=== PATIENT | female | born 1960 | race Caucasian/White ===

== ENCOUNTER 2019-10-28 07:02 | Emergency (ER) | payer BC ==
--- NOTE | 2019-10-28 07:12 | UC ---
Respiratory Complaint HPI - HPI Summary HPI Summary: CHIEF COMPLAINT: COUGH HPI: This is a 59 Y/O with a cough for 2 weeks. "Constant." No worsening or relieving symptoms but she does get short of breath climbing stairs. No hx of asthma or significant PMH or pneumonia. Description of Pain: None. VITAL SIGNS REVIEWED. Within normal limits unless noted here. NURSES NOTE REVIEWED. "Cough x 2 weeks. SOB when walking up stairs. reports post nasal drip." - History of Current Complaint Stated Complaint: COUGH Time Seen by Provider: 10/28/19 07:05 Hx Obtained From: Patient ?: No - Allergies/Home Medications Allergies/Adverse Reactions: Allergies Allergy/AdvReac Type Severity Reaction Status Date / Time No Known Allergies Allergy Verified 10/28/19 07:26 PMH/Surg Hx/FS Hx/Imm Hx Previously Healthy: Yes Endocrine History: Thyroid Disease Psychological History: Other - Surgical History Surgical History: Yes Surgery Procedure, Year, and Place: TONSILECTOMY. VARICOSE VEINS - SHAYY LEGS - Family History Known Family History: Positive: Hypertension - Social History Alcohol Use: Occasionally Substance Use Type: None Smoking Status (MU): Never Smoked Tobacco Review of Systems All Other Systems Reviewed And Are Negative: Yes Constitutional: Positive: Negative Respiratory: Positive: Shortness Of Breath, Cough - non productive Cardiovascular: Positive: Negative Gastrointestinal: Positive: Negative Genitourinary: Positive: Negative Is Patient Immunocompromised?: No Physical Exam - Summary Physical Exam Summary: Appearance: The patient is well-appearing, is in no pain or distress, and is well-nourished. Eyes: Conjunctiva are clear. Pupils are equal and reactive to light and accommodation. Extra ocular muscle movement is intact. ENT: The hearing is grossly normal, the pharynx is normal, and the TMs are normal. There is no muffled or hoarse voice. No stridor. Neck: The neck is supple and there is no lymphadenopathy. Respiratory: The chest is non-tender to palpation and without crepitus. The lungs are clear, there are normal breath sounds, but there is an extended expiratory phase particularly on the right. No wheezes, rales or rhonchi. Cardiovascular: Heart sounds reveal a regular rate and rhythm. There are no clicks, rubs or murmurs. There are no carotid bruits or thrills. Circulation is grossly intact. Abdomen: The abdomen is soft and nontender. There is no organomegaly. Bowel sounds are present and within normal limits. No point tenderness at McBurneys point. No CVA tenderness. Musculoskeletal: Strength is intact. The patient moves all extremities. Neurological: The patient is alert. Motor and sensory are examination grossly intact. Speech is normal. Psychological: The patient displays age appropriate behavior, and is conversant. GCS=15. Skin: Negative for rashes. Triage Information Reviewed: Yes Vital Signs Reviewed: Yes Respiratory Course/Dx - Course Course Of Treatment: Patient presents with cough. Differential diagnosis includes viral URI, bronchitis and pneumonia. More serious diagnoses would include pulmonary embolus, pneumothorax, and foreign body aspiration. Physical examination shows an extended expiratory phase. Diagnosis is consistent with bronchitis with bronchospasm. Treatment is albuterol, spacer, Z sheridan (by patient request; she won't use unless she has a fever). - Differential Dx/Diagnosis Differential Diagnosis/HQI/PQRI: Bronchitis, Lower Resp Infection Provider Diagnosis: Bronchospasm with bronchitis, acute Discharge ED - Sign-Out/Discharge Documenting (check all that apply): Patient Departure All imaging exams completed and their final reports reviewed: No Studies - Discharge Plan Condition: Stable Disposition: HOME Prescriptions: Albuterol HFA INHALER* [Ventolin HFA Inhaler*] 1 - 2 puff INH Q4H #1 mdi MDD 8 Azithromycin TAB* [Zithromax TAB*] 250 mg PO DAILY #6 tab Inhaler, Assist Devices [Aerochamber Mv] 1 mis XX Q6HR #1 mis MDD 8 Patient Education Materials: Acute Bronchitis (ED), Bronchospasm (ED) Referrals: Jaki Gibson MD [Primary Care Provider] - Additional Instructions: WE DISCUSSED: PLEASE SEEK CARE AT THE EMERGENCY DEPARTMENT IF SYMPTOMS WORSEN OR IF NEW SYMPTOMS DEVELOP. FOLLOW UP WITH YOUR PRIMARY CARE PHYSICIAN IF CONDITION CONTINUES BEYOND 3 DAYS WITHOUT IMPROVEMENT. YOUR DIAGNOSIS IS: BRONCHITIS WITH BRONCHOSPASM YOUR PRESCRIPTION RECOMMENDATION IS: ALBUTEROL, SPACER, Z SHERIDAN OTHER INSTRUCTIONS: FOR PAIN AND/OR SLEEP: For pain: Ibuprofen (Motrin and other brand names) 400-600mg PLUS acetaminophen (Tylenol and other brand names) 500mg - 1000mg every 8 hours. Other information: The most important goal is to liquefy all the phlegm and mucus, and get it out of your head and chest. For sore throat, it is important to keep throat moist and protected. Any illness causing cough, congestion, sore throat or sinus discomfort can be helped by doing the following: To clear you head, sinuses and chest of congestion: stand under a warm shower stream to loosen secretions. Use a vaporizor. Stay away from smoke or irritants. Use saline nasal spray or Neti Pot to keep the flow of mucus from your nostrils and sinuses. For sore throat: drink lots of warm fluids. Tea and honey is particularly useful because the honey can coat protect your throat. Gargle with warm water with 1/2 teaspoon of salt per 8 ounces of water. Gargle for a few seconds and spit out. Repeat every three hours. Keep your throat protected with lozenges. Don't let your throat dry out. Use a vaporizor at night. Make sure to check with your pharmacist if you are taking other prescription medication prior to taking any over the counter medications listed here. DECONGESTANTS: helps relieve stuffiness and clears sinuses. Pseudoephedrine ( Sudafed or generic) is effective but you need to ask the pharmacist for it because it may be kept behind the counter. ANTIHISTAMINES: are not helpful in many colds and flus because they can worsen sore throat, dry eyes and mouth and cause drowsiness. Examples are diphenhydramine, doxylamine and chlorpheniramine. They can help dry you out if you are having profuse, clear drainage from the nose or post-nasal drip. EXPECTORANTS: helps thin mucous in the nose and chest, making it easier to clear the fluid out. Expectorants are in most combination cough/cold remedies and should be taken with plenty of water. Guaifenesin is the most common expectorant and it comes in pill or liquid form. Mucinex is an extended release form of guaifenesin. COUGH SUPPRESSANT: reduces the body's cough reflex. Dextromethorphan is in over the counter products, but sometimes narcotics such as codeine or hydrocodone are used to suppress cough. SPECIFIC MEDICATIONS: The following medicines may help: To help with cough: DEXTROMETHORPHAN (Vicks, Robitussin, Nyquil and other brands) To help break up phlegm: GUAIFENESIN (Mucinex, Robitussin, other brands) To help clear congestion in the nose and sinuses: PSEUDOEPHEDRINE (Sudafed, Dimetapp, other brands) To help clear nasal congestion: AFRIN NASAL SPRAY: 2-3 SPRAYS PER NOSTRIL, TWICE A DAY FOR TWO DAYS ONLY. FLONASE: (or other steroid nasal sprays) can help if your running nose is caused by an allergy. It can help relieve congestion. It is used once a day in each nostril. Check the dose with your pharmacist. FOLLOW-UP: re-check in 10 days if you are not improving. Return here or see your caregiver. RE-CHECK SOONER if you have increased pain, temperature, cough, sinus symptoms, or difficulty breathing or swallowing. Go directly to Emergency Department if symptoms are severe. - Billing Disposition and Condition Condition: STABLE Disposition: Home
[2019-10-28 07:30] VITALS: BP 128/78
== END 2019-10-28 07:45 | disposition home or self-care (01) ==
LOC: UCEAST 07:02
DX: J20.9 Acute bronchitis, unspecified (principal)
CPT/HCPCS: 99212; G0463